=== PATIENT | male | born 1990 | race Hispanic/Latino ===

== ENCOUNTER 2016-12-22 11:51 | Emergency (ER) | payer OTHER ==
--- NOTE | 2016-12-22 12:09 | Emergency Department Report ---
Chief Complaint: Chest Pain Stated Complaint: CHEST PAIN Time Seen by Provider: 12/22/16 12:04 - HPI History of Present Illness: PT c/o chest pain x 1 week. PT states yesterday when he worked out, he had R sided chest pain. PT states he read an article that said it could be a heart attack. PT states reading the article has caused anxiety PT flew from [place] 14 days ago - ROS Review of Systems: + cp 12/14 - n/v - Exam Physical Exam: PT looks well, non toxic pt appears anxious MSE screening note: Focused history and physical exam performed. Due to findings the following was ordered: labs, xr, ekg Patient discussed with doctor:: JOHNSON HERRERA ED Disposition for MSE Condition: Stable
[2016-12-22 12:11] VITALS: BP 124/80
--- NOTE | 2016-12-22 12:40 | XRay Report ---
ROUTINE CHEST, TWO VIEWS: HISTORY: chest pain. The trachea, heart, mediastinal contour, lung mahan and bony thorax are unremarkable. IMPRESSION: Unremarkable chest x-ray.
[2016-12-22 12:52] LABS: Basophils % (Auto) 2.4 % (0.0-1.8); Eosinophils % (Auto) 0.6 % (0.0-4.3); Hematocrit 45.1 % (35.5-45.6); Hemoglobin 15.3 gm/dl (11.8-15.2); Mean Corpuscular HGB Conc 34 % (32-34); Mean Corpuscular Hemoglobin 29 pg (28-32); Mean Corpuscular Volume 86 fl (84-94); Platelet Count 225 K/mm3 (140-440); Red Blood Count 5.21 M/mm3 (3.65-5.03); Red Cell Distribution Width 13.1 % (13.2-15.2); White Blood Count 4.2 K/mm3 (4.5-11.0)
[2016-12-22 13:01] LABS: INR 1.07 (0.87-1.13)
[2016-12-22 13:02] LABS: Partial Thromboplastin Time 29.6 Sec. (24.2-36.6)
[2016-12-22 13:15] LABS: Alanine Aminotransferase 16 units/L (7-56); Albumin 4.7 g/dL (3.9-5); Albumin/Globulin Ratio 1.9 %; Alkaline Phosphatase 43 units/L (35-129); Anion Gap 20 mmol/L; Blood Urea Nitrogen 11 mg/dL (9-20); Calcium 9.3 mg/dL (8.4-10.2); Carbon Dioxide 24 mmol/L (22-30); Chloride 100.2 mmol/L (98-107); Creatine Kinase 112 units/L (55-170); Glucose 101 mg/dL (75-100); Potassium 3.9 mmol/L (3.6-5.0); Sodium 140 mmol/L (137-145); Total Protein 7.2 g/dL (6.3-8.2)
--- NOTE | 2016-12-22 15:03 | Emergency Department Report ---
ED Chest Pain HPI - General Chief Complaint: Chest Pain Stated Complaint: CHEST PAIN Time Seen by Provider: 12/22/16 12:04 Source: patient, family Mode of arrival: Ambulatory Limitations: No Limitations - History of Present Illness Initial Comments: Patient reported that he is traveling in any cities been having right chest pain for week and appears anxious. He said he has pain in his chest 3-4 times a year. He points to his midsternal area as the breast bone. Pain is 7 out of 10 on the comes and goes feels achy and worse with movement and touch. Denies any radiation of pain. Denies any nausea or vomiting. Denies any history of heart disease. Denies any history of blood clots, and his family or personally. Denies any lung disease. Denies any cough or shortness of breath. Denies any fever or chills. MD Complaint: chest pain Onset/Timin -: week(s) Onset: during rest, other (her slit movement) Pain Radiation: none Severity: moderate Severity scale (0 -10): 7 Quality: aching Consistency: intermittent Improves With: nothing Worsens With: movement Context: recent travel re: denies: nausea, vomting, diaphoresis, dyspnea, sense of impending doom Other Symptoms: denies: cough, fever, syncope, rash, acid taste in mouth, leg swelling, palpitations, other Treatments Prior to Arrival: none Aspirin use within the Past 7 Days: (0) No - Related Data On Oral Contraceptives: No Previous Rx's Medication Instructions Recorded Last Taken Type Naproxen [Naprosyn TAB] 500 mg PO BID PRN #10 tablet 12/22/16 Unknown Rx Allergies Allergy/AdvReac Type Severity Reaction Status Date / Time No Known Allergies Allergy Unverified 12/22/16 12:04 Heart Score - HEART Score History: Slightly suspicious EKG: Normal Age: < 45 Risk factors: No known risk factors Troponin: < normal limit HEART Score: 0 - Critical Actions Critical Actions: 0-3 pts:0.9-1.7%risk of adverse cardiac event.Candidate for discharge ED Review of Systems ROS: Stated complaint: CHEST PAIN Other details as noted in HPI Comment: All other systems reviewed and negative Constitutional: denies: chills, fever ENT: denies: throat pain, epistaxis, congestion Respiratory: no symptoms reported Cardiovascular: chest pain. denies: palpitations, dyspnea on exertion, edema, syncope Gastrointestinal: denies: abdominal pain, nausea, vomiting, diarrhea Musculoskeletal: denies: back pain, arthralgia, myalgia Skin: denies: rash Neurological: denies: headache, weakness, numbness, paresthesias, confusion, abnormal gait, vertigo Psychiatric: anxiety ED Past Medical Hx - Past Medical History Previous Medical History?: No Additional medical history: Patient reports that he had to have PTCA in the vein in his left leg because he had abnormality. He denies it was calcified and or in his artery he said he was in his vein and they said that he had not in his vein but could not explain in detail. - Surgical History Past Surgical History?: Yes Additional Surgical History: Left leg PTCA - Family History Family history: no significant - Social History Smoking Status: Never Smoker Substance Use Type: None - Medications Home Medications: Home Medications Medication Instructions Recorded Confirmed Last Taken Type Naproxen [Naprosyn TAB] 500 mg PO BID PRN #10 tablet 12/22/16 Unknown Rx ED Physical Exam - General Limitations: No Limitations General appearance: alert, in no apparent distress - Head Head exam: Present: atraumatic, normocephalic, normal inspection - Eye Eye exam: Present: normal appearance, PERRL, EOMI. Absent: periorbital swelling , periorbital tenderness Pupils: Present: normal accommodation - ENT ENT exam: Present: normal exam, normal orophraynx, mucous membranes moist - Neck Neck exam: Present: normal inspection, tenderness, full ROM. Absent: meningismus, lymphadenopathy - Respiratory Respiratory exam: Present: normal lung sounds bilaterally. Absent: respiratory distress, chest wall tenderness - Cardiovascular Cardiovascular Exam: Present: regular rate, normal rhythm, normal heart sounds - GI/Abdominal GI/Abdominal exam: Present: soft, normal bowel sounds. Absent: distended, tenderness, guarding, rebound, rigid - Extremities Exam Extremities exam: Present: normal inspection, full ROM, normal capillary refill. Absent: tenderness, pedal edema, joint swelling, calf tenderness - Back Exam Back exam: Present: normal inspection, full ROM. Absent: tenderness, CVA tenderness (R), CVA tenderness (L), muscle spasm, paraspinal tenderness, vertebral tenderness, rash noted - Neurological Exam Neurological exam: Present: alert, oriented X3, normal gait, reflexes normal. Absent: motor sensory deficit - Psychiatric Psychiatric exam: Present: normal affect, normal mood - Skin Skin exam: Present: warm, dry, intact, normal color. Absent: rash ED Course Vital Signs 12/22/16 12/22/16 12:05 15:18 Temperature 97.3 F L Pulse Rate 66 Respiratory 20 12 Rate Blood Pressure 124/80 O2 Sat by Pulse 100 Oximetry - Reevaluation(s) Reevaluation #1: 12/22/16 15:13 Patient received Deltasone 60 mg by mouth and Motrin 800 mg Emergency room. HENOK score - Henok Score Age > 65: (0) No Aspirin use within the Past 7 Days: (0) No 3 or more CAD Risk Factors: (0) No 2 or more Angina events in past 24 hrs: (0) No Known CAD with more than 50% Stenosis: (0) No Elevated Cardiac Markers: (0) No ST Deviation Greater than 0.5mm: (0) No HENOK Score: 0 ED Medical Decision Making - Lab Data Result diagrams: 12/22/16 12:36 12/22/16 12:36 Lab Results 12/22/16 12/22/16 12/22/16 Range/Units 12:36 12:36 12:36 WBC 4.2 L (4.5-11.0) K/mm3 RBC 5.21 H (3.65-5.03) M/mm3 Hgb 15.3 H (11.8-15.2) gm/dl Hct 45.1 (35.5-45.6) % MCV 86 (84-94) fl MCH 29 (28-32) pg MCHC 34 (32-34) % RDW 13.1 L (13.2-15.2) % Plt Count 225 (140-440) K/mm3 Lymph % (Auto) 24.9 (13.4-35.0) % [place] % (Auto) 6.8 (0.0-7.3) % Eos % (Auto) 0.6 (0.0-4.3) % Baso % (Auto) 2.4 H (0.0-1.8) % Lymph # 1.1 L (1.2-5.4) K/mm3 [place] # 0.3 (0.0-0.8) K/mm3 Eos # 0.0 (0.0-0.4) K/mm3 Baso # 0.1 (0.0-0.1) K/mm3 Seg Neutrophils % 65.3 (40.0-70.0) % Seg Neutrophils # 2.8 (1.8-7.7) K/mm3 PT 13.8 (12.2-14.9) Sec. INR 1.07 (0.87-1.13) APTT 29.6 (24.2-36.6) Sec. D-Dimer 149.84 (0-234) ng/mlDDU Sodium 140 (137-145) mmol/L Potassium 3.9 (3.6-5.0) mmol/L Chloride 100.2 (98-107) mmol/L Carbon Dioxide 24 (22-30) mmol/L Anion Gap 20 mmol/L BUN 11 (9-20) mg/dL Creatinine 1.1 (0.8-1.5) mg/dL Estimated GFR > 60 ml/min BUN/Creatinine Ratio 10.00 % Glucose 101 H (75-100) mg/dL Calcium 9.3 (8.4-10.2) mg/dL Total Bilirubin 0.70 (0.1-1.2) mg/dL AST 14 (5-40) units/L ALT 16 (7-56) units/L Alkaline Phosphatase 43 (35-129) units/L Total Creatine Kinase 112 (55-170) units/L Troponin T < 0.010 (0.00-0.029) ng/mL Total Protein 7.2 (6.3-8.2) g/dL Albumin 4.7 (3.9-5) g/dL Albumin/Globulin Ratio 1.9 % - EKG Data -: EKG Interpreted by Me (sinus rhythm with sinus arrhythmia at 65 bpm) EKG shows normal: sinus rhythm - EKG Data Interpretation: no acute changes, normal EKG - Medical Decision Making ED course Patient here complains in chest pain for weeks on and off and he's had previous episode of chest pain. Patient given Deltasone 60 mg by mouth and Motrin 800 mg by mouth for pain. Patient had EKG which was normal sinus rhythm with a sinus arrhythmia at [address] abnormality, d-dimer within normal limits , troponin normal and chest x-ray stable along with his physical exam. I explained to patient that he has costochondritis which the inflammation of the chest wall and will be treated with anti-inflammatory. He voiced understanding of discharge diagnosis and treatment plan . Pt Discharged home with his family prescription for naproxen. Based on well's criteria and poor curled patient has 0 risk for pulmonary embolism/DVT and his cardiac score is 0. Critical care attestation.: If time is entered above; I have spent that time in minutes in the direct care of this critically ill patient, excluding procedure time. ED Disposition Clinical Impression: Costochondritis, acute, Atypical chest pain Disposition: TO HOME OR SELFCARE Is pt being admited?: No Does the pt Need Aspirin: No Condition: Stable Instructions: Chest Pain (ED), Costochondritis (ED) Additional Instructions: follow-up with your primary care physician Please follow up with construction administrator if necessary. Take medication as prescribed Prescriptions: Naproxen [Naprosyn TAB] 500 mg PO BID PRN #10 tablet PRN Reason: Pain Referrals: PRIMARY CARE, [Primary Care Provider] - 2-3 Days Forms: Work/School Release Form(ED), Accompanied Note
[2016-12-22] MEDS ORDERED: MOTRIN PO ONE (15:07)
[2016-12-22] MEDS ORDERED: DECADRON IM ONE (15:07)
[2016-12-22] MEDS ORDERED: DELTASONE PO ONE (15:08)
== END 2016-12-22 15:44 | disposition home or self-care (01) ==
LOC: ED 11:51
DX: M94.0 Chondrocostal junction syndrome [Tietze] (principal); R07.9 Chest pain, unspecified
CPT/HCPCS: 36415; 71020; 80053; 82550; 84484; 85025; 85379; 85610; 85730; 93005; 93010; 99284; J7512